=== PATIENT | male | born 1945 | race African-American/Black ===

== ENCOUNTER 2025-01-06 07:09 | Inpatient (IN) | payer BC ==
[2025-01-06] VITALS (54 sets, daily range): BP systolic 85–158; BP diastolic 38–79; PULSE 53–100; RESP 11–25; TEMP 97–97.9; O2SAT 73–100
[~2025-01-06] VITALS: Ht 175.3 cm; Wt 57.5 kg
[~2025-01-06 07:09] MED LIST: ALBU2SYP25 PO; ASPI81CH43 PO; ATOR40TA52 PO; CLOB0.055 TOP; CLOP75TA70 PO; DICL75TA3 PO; ERGO1CAP23 PO; GABA-1308 PO; MAGN400T40 PO; MULT-1199 PO; SACU1TAB PO
[2025-01-06] MEDS: VERAPAMIL 2.5MG/ML INJ 2ML VIAL IV ONE (08:46)
[2025-01-06] MEDS: HEPARIN SODIUM (PORCINE) 5000 UNITS/ML 1ML VIAL ONE (08:46)
[2025-01-06] MEDS: ANGIOMAX 250 MG VIAL IV ONE (08:46)
[2025-01-06] MEDS: fentaNYL CITRATE 100 MCG/2 ML VL ONE (08:46)
[2025-01-06] MEDS: MIDAZOLAM HCL 2MG/2ML 2ml VIAL (1mg/ml) ONE (08:47)
[2025-01-06] MEDS: HEPARIN IN NS 1000Units/500mL 1,500 ML ONE (08:47)
[2025-01-06] MEDS: LIDOCAINE 2%HCL (LOCAL ANESTH.) INJ 20ML MDV ONE (08:52)
[2025-01-06] MEDS: IODIXANOL 320MG/ML 100ML BTL IV ONE (09:04)
[2025-01-06] MEDS: ATROPINE SULF 1 MG/10ml SYR ONE (10:29)
[2025-01-06] MEDS: EPINEPHrine HCL 1 MG/10 ML SYRG ONE (10:30)
[2025-01-06] MEDS: NOREPINEPHRINE 8 MG/250ML KIT 250 ML IV ONE (10:31)
[2025-01-06] MEDS: PHENYLEPHRINE IV 250 ML IV ONE (10:31)
[2025-01-06] MEDS ORDERED: NITROGLYCERIN 0.4 MG SL TAB SL PRN (11:00)
[2025-01-06] MEDS ORDERED: MORPHINE SULFATE INJ 2 MG/ml SYRG IV PRN (11:00)
[2025-01-06 11:03] LABS: Basophils # (auto) 0.1 10 ^3/uL (0-0.2); Basophils % (auto) 0.9 % (0.0-2.0); Eosinophils # (auto) 0.3 10 ^3/uL (0-0.8); Eosinophils % (auto) 5.1 % (0.0-7.0); Hematocrit 27.2 % (41.0-53.0); Lymphocytes % (auto) 30.8 % (10.0-50.0); Mean Corpuscular Hemoglobin 29.3 pg (28.0-32.0); Mean Corpuscular Volume 88.6 fL (80.0-100.0); Monocytes # (auto) 0.5 10 ^3/uL (0-1.3); Neutrophils # (auto) 3.5 10 ^3/uL (1.6-8.6); Neutrophils % (auto) 55.2 % (37.0-80.0); Nucleated Red Blood Cells % 0.2 %; Platelet Count (auto) 334 10^3/uL (140-450); Red Blood Cells 3.07 10^6/uL (4.5-5.90); Red Cell Distribution Width 16.7 % (11.8-14.3); White Blood Cell 6.4 10^3/uL (4.4-10.8)
[2025-01-06] MEDS: NOREPINEPHRINE 8 MG/250ML KIT 250 ML IV SCH (11:05)
[2025-01-06] MEDS: IOHEXOL 300 MG/ML 100ML BOTTLE IJ ONE (11:16)
--- NOTE | 2025-01-06 11:24 | DVH ---
INDICATION: r/o post procedure bleed right groin TECHNIQUE: Multiple real-time sonographic images of the lower quadrant. COMPARISON: None FINDINGS: There is trace free fluid in the right lower quadrant. Please note that the right groin is not imaged. IMPRESSION: 1. Trace free fluid in the right lower quadrant. Please note that the right groin is not imaged. If there is clinical concern for hematoma or pseudoaneurysm, targeted ultrasound of the right groin is r ecommended.
[2025-01-06] MEDS: SODIUM CHLORIDE 0.9% 1,000 ML IV SCH (12:00)
--- NOTE | 2025-01-06 12:10 | DVH ---
Exam: CT CT AB PEL WITH IV CON ONLY History: R/O RETROPERITONEAL BLEED Comparison Study: None available at time of dictation. Contrast: Type of contrast: Omnipaque 300 Contrast injected: 100 mL Contrast wasted: 0 TECHNIQUE: CT angiography of the abdomen pelvis was performed using intravenous contrast, from the belen ng bases to the proximal femurs from axial images. Coronal and sagittal reformatted images are submi tted. Radiation Dose Information: CT Dose: CTDI volume is 5.7 mGy. Dose-length product is 343.3 mGy*cm FINDINGS: Lung Bases: Leftward shift of the heart and mediastinum. Emphysema of the lung bases. No focal pulmon ele consolidation. Liver: The liver is normal in size. No focal lesions. Normal hepatic vascular enhancement. Gallbladder and Biliary Tree: Gallbladder is unremarkable. No intrahepatic or extrahepatic biliary du ctal dilatation. Spleen: Unremarkable Pancreas: The pancreas is normal in appearance without focal lesions or abnormal enhancement. Adrenal Glands: Unremarkable Kidneys: Kidneys demonstrate normal symmetric enhancement without focal lesions, calculi or hydroneph rosis. Bilateral subcentimeter renal cysts. Urinary bladder: Unremarkable. Bowel: The stomach is grossly normal in appearance. Small bowel and colon are normal in caliber and d istribution. The appendix is not visualized; however, no secondary findings of acute appendicitis id entified. Intraperitoneal cavity: No pneumoperitoneum. No intraperitoneal free fluid. There is mixed, hyperattenuating and hypoattenuating fluid collection in the right retroperitoneum wh ich measures 8.1 cm AP by 6.4 cm transverse by 19.8 cm in maximum craniocaudal dimension. The hyperat tenuating areas are consistent with active contrast extravasation. This extends to the right groin wh ere there are postsurgical changes. There is a focus of gas in the right groin. Right external iliac artery is ill-defined with surrounding hyperattenuating fluid suspicious for the source of possible h emorrhage. Lymphadenopathy: No mesenteric, retroperitoneal or periportal lymphadenopathy. Abdominal Wall and Mesentery: Unremarkable. Vasculature: The visualized abdominal aorta is normal in size and caliber. Atherosclerotic calcifica tions in the abdominal aorta and common iliac arteries and branches. No evidence of abdominal aortic aneurysm or dissection. Pelvic Organs: Unremarkable Musculoskeletal: No aggressive focal bony lesions, acute fractures or dislocation. Left hip replaceme nt. L1 compression deformity of indeterminate age. Soft tissues: Unremarkable. IMPRESSION: 1. 19.8 cm right retroperitoneal hematoma with areas of active arterial hemorrhage. Source of hemorr sandra is possibly the right external iliac artery as described. All CT scans at this medical facility are performed using dose modulation techniques as appropriate t o a performed exam including the following: Automated exposure control was utilized; adjustment of th e MA and/or KV according to patient size; and use of iterative reconstruction technique.
--- NOTE | 2025-01-06 13:12 | DVHOP2 ---
Operative Report - 2 Report Details Date: 01/06/25 Preop Diagnosis: Peripheral vascular disease Postop Diagnosis: Peripheral vascular disease Surgeon: Dickson Holt MD Anesthesiologist: Conscious sedation Anesthesia: Mac, Local (Versed and fentanyl given throughout the procedure. Patient was monitored throughout.) Consent: The patient was informed of the risks and benefits of the procedure. These include but are not limited to complications of anesthesia, postoperative infection, incomplete relief of symptoms, recurrence of symptoms, damage to blood vessels, nerves and tendons, deep venous thrombosis, pulmonary embolism and possible need for repeat surgery in the future. Complications: Small perforation of distal iliac artery Estimated Blood Loss: No external blood loss Fluids: 1400 cc IV fluids given. Findings: Occlusion of proximal right common iliac artery. Indications for Surgery: Claudication. Name of Procedure Performed Peripheral angiographic evaluation. 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 A runoff was performed of the left lower extremity. We then placed a rim catheter into the left femoral and into the distal aorta and performed an angiographic evaluation of the proximal iliac. This was occluded proximally. We then gained access into the right femoral RV and placed a six Sammarinese sheath into the proximal right common femoral. Angiographic evaluation and runoff was then performed through this catheter. We took a quick cross catheter and attempted advancement into the right femoral artery retrograde it appeared to go into the seemed to be a false channel in the right femoral artery. We retracted the catheter in went into what appears to be the true channel of the distal external iliac. We attempted a retrograde recanalization approach. We then placed an MCV 1 catheter into the left femoral in attempted an antegrade approach as well. The patient developed hypotension. We instituted aggressive IV hydration and pressors. We occluded the right femoral artery as to prevent flow retrograde into a possible perforation. We noticed that the right lower quadrant was firm and tender. We stopped Angiomax and put pressure on the femoral artery and placed a FemoStop device. Dopamine was instituted. Patient was blood pressure remained stable. Patient was otherwise conscious and stable throughout. A CT scan was ordered. Impression unsuccessful recanalization of the right iliac artery. Perforation distal iliac/proximal femoral artery possibly through a exchanged catheter or wire. We will monitor and a vascular surgeon consultation obtained. Condition Guarded Disposition Still a Patient Date of Service: Jan 06, 2025 Billing Provider: DICKSON HOLT Sr., MD Cardiology Common Codes: 34213-[id number] INP/OBS CARE (High) Peripheral Procedures Codes: 83775-[id number] W/TRANS ANGPLASTY DICKSON HOLT Sr., MD Jan 06, 2025 13:12
--- NOTE | 2025-01-06 14:27 | DVHINCON2 ---
Date of service: Jan 06, 2025 Family History: Cancer MOTHER Allergies: Coded Allergies: NO KNOWN ALLERGIES (Unverified , 01/01/25) Home Meds Reported Medications Ergocalciferol (VITAMIN D 30438 UNIT) 50,000 [place], [address] UNIT PO QWEEKLY for SUPPLEMENT, CAP 01/01/25 Atorvastatin Calcium (ATORVASTATIN CALCIUM) 40 Mg Tab, 1 TAB PO DAILY for HIGH CHOLESTEROL, #30 TAB 5 Refills 01/01/25 Magnesium Oxide (MAGNESIUM OXIDE) 400 Mg Tab, 1 TAB PO BID for SUPPLEMENT, #60 TAB 5 Refills 01/01/25 Clopidogrel Bisulfate (CLOPIDOGREL) 75 Mg Tab, 1 TAB PO DAILY for S/P ILIAC STENT, #90 TAB 1 Refill 01/01/25 Gabapentin (Gabapentin) 100 Mg Cap, 100 MG PO TID for NEUROPATHY 01/01/25 Sacubitril-Valsartan (Entresto 24-26 mg) 1 Tab Tab, 1 TAB PO BID for HF, TAB 01/01/25 Multiple Vitamins W/ Minerals (Centrum Minis Men 50+) 1 Tab Tab, 1 TAB PO DAILY for SUPPLEMENT, TAB 01/01/25 Diclofenac Sodium (Diclofenac Sodium Dr) 75 Mg Tab, 75 MG PO QID for PAIN, TAB 01/01/25 Albuterol Sulfate (Ventolin) 2 Mg/5 Ml Sr, 2 MG PO Q6HP PRN for SHORTNESS OF BREATH, MG 11/09/16 Aspirin (Asa) 81 Mg Ch, 81 MG PO DAILY 11/09/16 Clobetasol Propionate (Clobetasol Propionate) 0.05 % Cre, 1 APPLIC TOP BID for SKIIN IRRITATION, #15 GRAMS 11/09/16 Current Medications Current Medications Medications (Trade) Dose Ordered Sig/Elizabeth Route PRN Reason Start Time Stop Time Status Last Admin Nitroglycerin (Ntrostat Sublingual) 0.4 mg Q5MINP PRN SL FOR CHEST PAIN 01/06/25 11:00 UNV Morphine Sulfate 2 mg Q30M PRN IV FOR CHEST PAIN 01/06/25 11:00 UNV Norepinephrine Bitartrate 250 ml @ 3.75 mls/hr Q24H IV 01/06/25 11:05 UNV Sodium Chloride 1,000 ml @ 100 mls/hr Q10H IV 01/06/25 12:00 UNV Vital Signs Vital Signs Date Time Temp Pulse Resp B/P (MAP) Pulse Ox O2 Delivery O2 Flow Rate FiO2 01/06/25 13:07 128/50 01/06/25 13:04 97.0 68 12 97.0 01/06/25 13:02 95 Labs/Diagnostic Data Labs Test 01/06/25 10:45 Range/Units White Blood Count 6.4 4.4-10.8 10^3/uL Red Blood Count 3.07 L 4.5-5.90 10^6/uL Hemoglobin 9.0 L 13.5-17.5 g/dL Hematocrit 27.2 L 41.0-53.0 % Mean Corpuscular Volume 88.6 80.0-100.0 fL Mean Corpuscular Hemoglobin 29.3 28.0-32.0 pg Mean Corpuscular Hemoglobin Concent 33.0 32.0-36.0 g/dL Red Cell Distribution Width 16.7 H 11.8-14.3 % Platelet Count 334 140-450 10^3/uL Mean Platelet Volume 6.6 L 6.9-10.8 fL Neutrophils (%) (Auto) 55.2 37.0-80.0 % Lymphocytes (%) (Auto) 30.8 10.0-50.0 % Monocytes (%) (Auto) 8.0 0.0-12.0 % Eosinophils (%) (Auto) 5.1 0.0-7.0 % Basophils (%) (Auto) 0.9 0.0-2.0 % Neutrophils # (Auto) 3.5 1.6-8.6 10 ^3/uL Lymphocytes # (Auto) 2.0 0.4-5.4 10 ^3/uL Monocytes # (Auto) 0.5 0-1.3 10 ^3/uL Eosinophils # (Auto) 0.3 0-0.8 10 ^3/uL Basophils # (Auto) 0.1 0-0.2 10 ^3/uL Nucleated Red Blood Cells 0.2 % Assessment PATIENT SEEN IN [employer] ADMINISTRATOR HAD AN PERCUTANEOUS ANGIOGRAM WITH IATROGENIC PERFORATION, NOW A SIGNIFICANT HEMATOMA IN RIGHT RETROPERITONEAL SPACE, RIGHT FEMORAL ARTERY PULSATILE, NO SWELLING, NOW ON MINIMAL PRESSURE SUPPORT WITH NORMAL bp, NEEDS PACKED CELLS, REPEAT H/H DETERMINATION, PLEASE CALL ME IF DECREASING OR IF HEMODYNAMICALLY UNSTABLE, Plan discussed with: Other KEV SAUNDERS MD Jan 06, 2025 14:27
[2025-01-06 16:27] LABS: INR 1.51 (0.9-1.15); Partial Thromboplastin Time 45.3 SEC (24.5-34.5); Prothrombin Time 15.4 sec (9.3-11.8)
[2025-01-06 17:47] LABS: Hematocrit 30.9 % (41.0-53.0); Hemoglobin 10.1 g/dL (13.5-17.5)
[2025-01-06 22:38] LABS: Hematocrit 27.2 % (41.0-53.0)
[2025-01-07] VITALS (104 sets, daily range): BP systolic 91–144; BP diastolic 26–100; PULSE 51–81; RESP 13–32; TEMP 97.7–98.3; O2SAT 78–100
[2025-01-07 02:16] LABS: Hematocrit 25.3 % (41.0-53.0); Hemoglobin 8.5 g/dL (13.5-17.5)
[2025-01-07 04:34] LABS: Alanine Aminotransferase 17 U/L (7-40); Alkaline Phosphatase 78 U/L (46-116); Calcium 8.9 mg/dL (8.7-10.4); Carbon Dioxide 23 mmol/L (20-31); Glucose 90 mg/dL (74-106); Potassium 4.2 mmol/L (3.5-5.1)
[2025-01-07 04:35] LABS: Anion Gap 6 (5-15); Aspartate Aminotransferase 18 U/L (13-40); BUN/Creatinine Ratio 10.6 (10.0-20.0); Bilirubin, Total 1.1 mg/dL (0.2-1.0); Blood Urea Nitrogen 13 mg/dL (9-23); Sodium 137 mmol/L (136-145); Total Protein 6.3 g/dL (5.7-8.2)
[2025-01-07 04:49] LABS: Basophils # (auto) 0 10 ^3/uL (0-0.2); Basophils % (auto) 0.3 % (0.0-2.0); Eosinophils # (auto) 0.2 10 ^3/uL (0-0.8); Eosinophils % (auto) 2.4 % (0.0-7.0); Hematocrit 25.4 % (41.0-53.0); Hemoglobin 8.5 g/dL (13.5-17.5); Lymphocytes # (auto) 1.1 10 ^3/uL (0.4-5.4); Lymphocytes % (auto) 14.5 % (10.0-50.0); Mean Corpuscular Hemoglobin 29.8 pg (28.0-32.0); Mean Corpuscular Hgb Conc. 33.5 g/dL (32.0-36.0); Mean Corpuscular Volume 88.9 fL (80.0-100.0); Monocytes # (auto) 0.7 10 ^3/uL (0-1.3); Neutrophils # (auto) 5.7 10 ^3/uL (1.6-8.6); Neutrophils % (auto) 73.8 % (37.0-80.0); Nucleated Red Blood Cells % 0.1 %; Platelet Count (auto) 244 10^3/uL (140-450); Red Blood Cells 2.86 10^6/uL (4.5-5.90); Red Cell Distribution Width 16.2 % (11.8-14.3); White Blood Cell 7.7 10^3/uL (4.4-10.8)
[2025-01-07 05:03] LABS: Albumin 3.1 g/dL (3.2-4.8); Chloride 108 mmol/L (98-107)
--- NOTE | 2025-01-07 06:08 | DVH ---
EXAM: XR Chest, 1 View CLINICAL INDICATION: RESP DISTRESS TECHNIQUE: Frontal view of the chest. COMPARISON: None FINDINGS: LUNGS AND PLEURAL SPACES: Left basilar atelectasis or pneumonia. Left pleural effusion. HEART: Cardiomegaly with mild congestion. MEDIASTINUM: Unremarkable. Normal mediastinal contour. BONES/JOINTS: Unremarkable. No acute fracture. OTHER FINDINGS: . . . . IMPRESSION: 1. Left basilar atelectasis or pneumonia. 2. Cardiomegaly with mild congestion. 3. Left pleural effusion.
[2025-01-07 10:49] LABS: Hematocrit 28.5 % (41.0-53.0); Hemoglobin 9.5 g/dL (13.5-17.5)
--- NOTE | 2025-01-07 11:48 | DVHPN2 ---
Progress Note Date Seen: Jan 07, 2025 Medical Necessity Reason Pt with a Central, PICC or Fol: No Objective vital signs Vital Sign Date Time Temp Pulse Resp B/P (MAP) Pulse Ox O2 Delivery O2 Flow Rate FiO2 01/07/25 10:19 98.0 63 17 124/58 98.0 01/07/25 06:16 97 01/07/25 06:00 Room Air* 0 21 21 Total Intake and Output 01/06/25 01/06/25 01/07/25 15:00 23:00 07:00 Intake Total 700 ml 1940 ml 700 ml Output Total 950 ml Balance 700 ml 990 ml 700 ml medications Current Medications Medications Dose Ordered Sig/Elizabeth Route Start Time Stop Time Status Last Admin Dose Admin Nitroglycerin 0.4 mg Q5MINP PRN SL 01/06/25 11:00 Morphine Sulfate 2 mg Q30M PRN IV 01/06/25 11:00 Norepinephrine Bitartrate 250 ml @ 3.75 mls/hr Q24H IV 01/06/25 11:05 Sodium Chloride 1,000 ml @ 100 mls/hr Q10H IV 01/06/25 12:00 01/07/25 06:00 100 MLS/HR laboratory and microbiology Laboratory Tests 01/07/25 10:39 01/07/25 03:22 Test 01/07/25 03:22 Range/Units Serum Glucose 90 74-106 mg/dL Problem List/Assessment/Plan Problem List/Assessment/Plan 01/07/25 surgical f/u, patient stable, catheter sites without swelling, distal perfusion stable, h/h Ok, he can be down graded , return to see me in 4 weeks imn the office for planning of a fem fem bypass. Plan discussed with: Patient KEV SAUNDERS MD Jan 07, 2025 11:48
[2025-01-07 15:17] LABS: Hematocrit 28.9 % (41.0-53.0); Hemoglobin 9.8 g/dL (13.5-17.5)
[2025-01-07 19:13] LABS: Hematocrit 28.7 % (41.0-53.0); Hemoglobin 9.7 g/dL (13.5-17.5)
--- NOTE | 2025-01-07 20:05 | DVHHP2 ---
Admitting Diagnosis: status post cardiac angiogram, perforated distal iliac artery History of Present Illness History Source: Patient Exam Limitations: No limitations HPI Mr. Fuad Diez is a 79 yo male with a history of COPD, current cigarette smoker, hypertension, heart failure , PVD, hyperlipidemia, neuropathy, cataracts, glaucoma who presented to the hospital on 01/06 for outpatient cardiac angiogram procedure with cardiology Dr. Holt. Patient was then admitted to ICU for 19.8 cm right retroperitoneal hematoma. Patient CT abdomen/pelvis resulted: 1. 19.8 cm right retroperitoneal hematoma with areas of active arterial hemorrhage. Source of hemorrhage is possibly the right external iliac artery as described. Patient lower quadrant ultrasound resulted: 1. Trace free fluid in the right lower quadrant. Please note that the right groin is not imaged. If there is clinical concern for hematoma or pseudoaneurysm, targeted ultrasound of the right groin is recommended. Patient was admitted to ICU by Cardiology for further evaluation. Home Meds Reported Medications Ergocalciferol (VITAMIN D 56133 UNIT) 50,[place], [address] UNIT PO QWEEKLY for SUPPLEMENT, CAP 01/01/25 Atorvastatin Calcium (ATORVASTATIN CALCIUM) 40 Mg Tab, 1 TAB PO DAILY for HIGH CHOLESTEROL, #30 TAB 5 Refills 01/01/25 Magnesium Oxide (MAGNESIUM OXIDE) 400 Mg Tab, 1 TAB PO BID for SUPPLEMENT, #60 TAB 5 Refills 01/01/25 Clopidogrel Bisulfate (CLOPIDOGREL) 75 Mg Tab, 1 TAB PO DAILY for S/P ILIAC STENT, #90 TAB 1 Refill 01/01/25 Gabapentin (Gabapentin) 100 Mg Cap, 100 MG PO TID for NEUROPATHY 01/01/25 Sacubitril-Valsartan (Entresto 24-26 mg) 1 Tab Tab, 1 TAB PO BID for HF, TAB 01/01/25 Multiple Vitamins W/ Minerals (Centrum Minis Men 50+) 1 Tab Tab, 1 TAB PO DAILY for SUPPLEMENT, TAB 01/01/25 Diclofenac Sodium (Diclofenac Sodium Dr) 75 Mg Tab, 75 MG PO QID for PAIN, TAB 01/01/25 Albuterol Sulfate (Ventolin) 2 Mg/5 Ml Sr, 2 MG PO Q6HP PRN for SHORTNESS OF BREATH, MG 11/09/16 Aspirin (Asa) 81 Mg Ch, 81 MG PO DAILY 11/09/16 Clobetasol Propionate (Clobetasol Propionate) 0.05 % Cre, 1 APPLIC TOP BID for SKIIN IRRITATION, #15 GRAMS 11/09/16 Past Medical History Cardiac: CHF, HTN, Hyperlipidemia Pulmonary: COPD Central Nervous System: No pertinent Hx GI: No pertinent Hx Hemotology/Oncology: No pertinent Hx Hepatobiliary: No pertinent Hx Psychiatric: No pertinent Hx Musculoskeletal: No pertinent Hx Rheumotologic: No pertinent Hx Infectious Disease: No peritnent Hx ENT: No pertinent Hx Renal/: No pertinent Hx Endocrine: No pertinent Hx Dermatology: No pertinent Hx Others Neuropathy, PVD, Cataracts, Glaucoma Patient Family History: Cancer MOTHER Smoker: <1 pack per day Alocohol: None Drugs: None Lives with: With family Domestic Violence: Neg Review of Systems Constitutional: No symptom reported Ears, Nose, & Throat: No symptom reported Eyes: No symptom reported Pulmonary/Respiratory: No symptom reported Cardiovascular: No symptom reported Gastrointestinal: No symptom reported Genitourinary: No symptom reported Musculoskeletal: No symptom reported Skin: No symptom reported Psychiatric: No symptom reported Endocrine: No symptom reported Hemotologic/Lymphatic: No symptom reported H&P Exam Vital Signs Vital Signs Date Time Temp Pulse Resp B/P (MAP) Pulse Ox O2 Delivery O2 Flow Rate FiO2 01/07/25 18:00 15 95 Room Air* 0 21 21 01/07/25 18:00 68 118/58 (78) 127/48 (74) 01/07/25 16:00 98.1 98.1 General Appeara: Well developed, Well nourished, Normal Appearance Head Exam: Normal inspection Neck Exam: Normal inspection, Non-tender, Normal alignment Eye Exam: bilateral eye Normal inspection, bilateral eye PERRL, bilateral eye EOMI Ear Exam: bilateral ear Auricle normal Nasal Exam: Normal inspection Mouth: Normal Inspection Pulmonary/Respiratory: Normal inspection, Normal breath sounds, Chest non- tender, Lungs clear Cardiovascular/Chest: Normal inspection, Regular rate, Normal Rhythm Peripheral Pulses: 2+ dorsalis pedis (R), 2+ dorsalis pedis (L), 2+ Radial (R), 2+ Radial (L) Abdominal Exam: Normal bowel sounds, Soft Rectal Exam: Deferred Back Exam: Normal inspection Male Genital Exam: Normal genitalia INDUSTRIAL ANALYST Exam: Normal hearing, Normal speech, PERRL Neuro/Mental St: Alert, Oriented Appearance: Appropriate appearance, Appropriate insight Eye contact/ Speech: Cooperative, Good eye contact, Normal speech Thoughts/Psych: Normal thought pattern Skin Exam: Normal inspection, Normal color, Warm/dry Labs/Xrays Labs Test 01/07/25 18:48 01/07/25 03:22 01/06/25 15:55 Range/Units Hemoglobin 9.7 L 13.5-17.5 g/dL Hematocrit 28.7 L 41.0-53.0 % White Blood Count 7.7 4.4-10.8 10^3/uL Red Blood Count 2.86 L 4.5-5.90 10^6/uL Mean Corpuscular Volume 88.9 80.0-100.0 fL Mean Corpuscular Hemoglobin 29.8 28.0-32.0 pg Mean Corpuscular Hemoglobin Concent 33.5 32.0-36.0 g/dL Red Cell Distribution Width 16.2 H 11.8-14.3 % Platelet Count 244 140-450 10^3/uL Mean Platelet Volume 7.2 6.9-10.8 fL Neutrophils (%) (Auto) 73.8 37.0-80.0 % Lymphocytes (%) (Auto) 14.5 10.0-50.0 % Monocytes (%) (Auto) 9.0 0.0-12.0 % Eosinophils (%) (Auto) 2.4 0.0-7.0 % Basophils (%) (Auto) 0.3 0.0-2.0 % Neutrophils # (Auto) 5.7 1.6-8.6 10 ^3/uL Lymphocytes # (Auto) 1.1 0.4-5.4 10 ^3/uL Monocytes # (Auto) 0.7 0-1.3 10 ^3/uL Eosinophils # (Auto) 0.2 0-0.8 10 ^3/uL Basophils # (Auto) 0 0-0.2 10 ^3/uL Nucleated Red Blood Cells 0.1 % Sodium Level 137 136-145 mmol/L Potassium Level 4.2 3.5-5.1 mmol/L Chloride Level 108 H 98-107 mmol/L Carbon Dioxide Level 23 20-31 mmol/L Anion Gap 6 5-15 Blood Urea Nitrogen 13 9-23 mg/dL Creatinine 1.23 0.700-1.30 mg/dL Glomerular Filtration Rate Calc 60 >90 mL/min BUN/Creatinine Ratio 10.6 10.0-20.0 Serum Glucose 90 74-106 mg/dL Calcium Level 8.9 8.7-10.4 mg/dL Total Bilirubin 1.1 H 0.2-1.0 mg/dL Aspartate Amino Transferase (AST) 18 13-40 U/L Alanine Aminotransferase (ALT) 17 7-40 U/L Alkaline Phosphatase 78 46-116 U/L Total Protein 6.3 5.7-8.2 g/dL Albumin 3.1 L 3.2-4.8 g/dL Prothrombin Time 15.4 H 9.3-11.8 sec Prothrombin Time INR 1.51 H 0.9-1.15 Activated Partial Thromboplast Time 45.3 H 24.5-34.5 SEC Microbiology Date/Time Source Procedure Growth Status 01/07/25 00:00 Nose MRSA Screen - Final Complete Assessment/Plan Problem List: (1) Status post cardiac catheterization (2) Retroperitoneal hematoma Plan This is a 79 yo male with a history of COPD, current cigarette smoker, hypertension, heart failure , PVD, hyperlipidemia, neuropathy, cataracts, glaucoma who presented to the hospital on 01/06 for outpatient cardiac angiogram procedure with cardiology Dr. Holt. Patient was then admitted to ICU for 19.8 cm right retroperitoneal hematoma. Patient CT abdomen/pelvis resulted: 1. 19.8 cm right retroperitoneal hematoma with areas of active arterial hemorrhage. Source of hemorrhage is possibly the right external iliac artery as described. Patient lower quadrant ultrasound resulted: 1. Trace free fluid in the right lower quadrant. Please note that the right groin is not imaged. If there is clinical concern for hematoma or pseudoaneurysm, targeted ultrasound of the right groin is recommended. Patient was admitted to ICU by Cardiology for further evaluation. General surgeon was also consulted by Cardiology for further evaluation. We were consulted to follow for medical management. 1. status post cardiac angiogram 2. perforated distal iliac artery 3. retroperitoneal hematoma Cardiology recommendation appreciated and continued General surgeon recommendation appreciated and continued IV fluids NS serial H&H every 4 hours GI ppx Protonix Analgesics as needed Monitor BMP, CBC Discussed all above with patient who verbalized agreement and understanding of care plan. All questions were answered. Discussed assessment and care plan with supervising MD. Patient is seen and evaluated in the ICU as well as discussed with the nurse and Dr. Garzon a contact center agent. Chart is reviewed and discussed with the nurse practitioner. I agree with nurse practitioner's evaluation, documentation, assessment and care plan as outlined. Plan discussed with: Patient, Other Code Visit Code Visit Total Time (mins): 45 BEATA AUGUSTE Jan 07, 2025 20:05 SARAH MCLEOD MD Jan 08, 2025 12:51
[2025-01-07] MEDS ORDERED: HYDROcodone-ACET 5/325MG TAB PO PRN (20:15)
[2025-01-07] MEDS ORDERED: ONDANSETRON HCL 4 MG/2 ML VIAL IV PRN (20:15)
[2025-01-07] MEDS: PANTOPRAZOLE 40 MG/10 ML VIAL INJ IV SCH (20:49)
[2025-01-07 21:42] LABS: Urine Bacteria None Seen /hpf (None Seen)
[2025-01-07 22:06] LABS: Urine Blood TRACE /uL (Negative); Urine Clarity Clear (Clear); Urine Color Yellow (Yellow); Urine Protein, UAD Negative (Negative); Urine Specific Gravity 1.023 (1.001-1.035); Urine Squamous Epithelial Cell FEW /hpf (<5); Urine Urobilinogen Normal (Negative); Urine WBC 1 /HPF (0-3); Urine pH 5.5 (5.0-9.0)
[2025-01-07 23:04] LABS: Hematocrit 26.7 % (41.0-53.0)
[2025-01-08] VITALS (75 sets, daily range): BP systolic 106–144; BP diastolic 37–63; PULSE 56–77; RESP 17–29; TEMP 98–98.4; O2SAT 92–98
[2025-01-08 02:43] LABS: Hematocrit 26.6 % (41.0-53.0); Hemoglobin 8.8 g/dL (13.5-17.5)
[2025-01-08 04:04] LABS: Basophils # (auto) 0 10 ^3/uL (0-0.2); Basophils % (auto) 0.4 % (0.0-2.0); Eosinophils # (auto) 0.2 10 ^3/uL (0-0.8); Eosinophils % (auto) 2.4 % (0.0-7.0); Hematocrit 26.6 % (41.0-53.0); Hemoglobin 9.3 g/dL (13.5-17.5); Lymphocytes # (auto) 1.3 10 ^3/uL (0.4-5.4); Lymphocytes % (auto) 14.6 % (10.0-50.0); Mean Corpuscular Hgb Conc. 34.9 g/dL (32.0-36.0); Mean Corpuscular Volume 88.9 fL (80.0-100.0); Monocytes % (auto) 10.7 % (0.0-12.0); Neutrophils # (auto) 6.6 10 ^3/uL (1.6-8.6); Neutrophils % (auto) 71.9 % (37.0-80.0); Nucleated Red Blood Cells % 0.1 %; Platelet Count (auto) 215 10^3/uL (140-450); Red Blood Cells 2.99 10^6/uL (4.5-5.90); Red Cell Distribution Width 16.4 % (11.8-14.3); White Blood Cell 9.2 10^3/uL (4.4-10.8)
[2025-01-08 04:20] LABS: Alanine Aminotransferase 14 U/L (7-40); Alkaline Phosphatase 72 U/L (46-116); Anion Gap 9 (5-15); Aspartate Aminotransferase 20 U/L (13-40); BUN/Creatinine Ratio 9.6 (10.0-20.0); Blood Urea Nitrogen 11 mg/dL (9-23); Glucose 79 mg/dL (74-106); Potassium 3.9 mmol/L (3.5-5.1); Sodium 138 mmol/L (136-145); Total Protein 6.1 g/dL (5.7-8.2)
[2025-01-08 04:33] LABS: Bilirubin, Total 1.5 mg/dL (0.2-1.0); Calcium 8.5 mg/dL (8.7-10.4); Carbon Dioxide 20 mmol/L (20-31); Chloride 109 mmol/L (98-107)
--- NOTE | 2025-01-08 06:04 | DVH ---
CHEST RADIOGRAPH Indication: RESP DISTRESS Technique: Single frontal view of the chest was obtained Comparison: XY CHEST PORTABLE on DOS: 01/07/25 FINDINGS: Lines and Tubes: None Lungs: Patchy left lung opacities. Pleura: Left pleural effusion. No pneumothorax. Cardiomediastinal contours: Leftward mediastinal shift. Obscuration of the heart. Bones: No acute osseous abnormality. IMPRESSION: 1. Patchy left lung opacities representing edema and/or pneumonia. Likely left pleural effusion super imposed. No significant interval change.
--- NOTE | 2025-01-08 09:28 | DVHPN2 ---
Consult Progress Note Date Seen: Jan 08, 2025 Subjective Patient reports: No new complaints, Feels better (Less abdominal pain. No significant pressure on palpation. Vital signs have been stable.) Review of Systems: HEENT:Normal, CVS:Normal, CVS:Abnormal ( Mild abdominal pain. No dizziness or lightheadedness.), RESPIRATORY:Normal, GI:Normal, :Normal, NEURO:Normal Objective vital signs Vital Sign Date Time Temp Pulse Resp B/P (MAP) Pulse Ox O2 Delivery O2 Flow Rate FiO2 01/08/25 08:00 73 01/08/25 08:00 20 96 Room Air* 0 21 21 01/08/25 06:45 115/45 (68) 119/42 (67) 01/08/25 04:00 98.1 98.1 Total Intake and Output 01/07/25 01/07/25 01/08/25 15:00 23:00 07:00 Intake Total 1390 ml 1670 ml 940 ml Output Total 550 ml 400 ml Balance 1390 ml 1120 ml 540 ml medications Current Medications Medications Dose Ordered Sig/Elizabeth Route Start Time Stop Time Status Last Admin Dose Admin Nitroglycerin 0.4 mg Q5MINP PRN SL 01/06/25 11:00 Morphine Sulfate 2 mg Q30M PRN IV 01/06/25 11:00 Norepinephrine Bitartrate 250 ml @ 3.75 mls/hr Q24H IV 01/06/25 11:05 Sodium Chloride 1,000 ml @ 100 mls/hr Q10H IV 01/06/25 12:00 01/08/25 02:50 100 MLS/HR Acetaminophen 650 mg Q6HPRN PRN PO 01/07/25 20:15 Acetaminophen/ Hydrocodone Bitart 1 tab Q6HPRN PRN PO 01/07/25 20:15 Ondansetron HCl 4 mg Q6HPRN PRN IV 01/07/25 20:15 Pantoprazole Sodium 40 mg DAILY IV 01/07/25 20:49 01/07/25 20:49 40 MG Examination: GENERAL:Normal, HEENT:Normal, NECK:Normal, LUNGS:Normal, CVS:Normal, ABDOMEN:Abnormal ( Mild abdominal pain right lower quadrant. Stable blood pressure. Stable hemoglobin and hematocrit.), MSK:Normal laboratory and microbiology Laboratory Tests 01/08/25 03:10 Test 01/08/25 03:10 Range/Units Serum Glucose 79 74-106 mg/dL Problem List/Assessment/Plan Problem List/Assessment/Plan Cardiomyopathy. Severe peripheral vascular disease. Claudication. Chronic occlusion of right iliac artery. Unsuccessful recannulization of iliac artery. Retroperitoneal hematoma resolved. Plan discussed with: Patient, Spouse ( We will follow up in 2-3 weeks. We will refer as outpatient to vascular surgery for fem-fem bypass.) Date of Service: Jan 08, 2025 Billing Provider: DICKSON BILL Sr., MD Cardiology Common Codes: 63128-[id number] INP/OBS CARE (High), 03510-[id number] HOSP CARE(High Peripheral Procedures Codes: [id number] W/TRANS ANGPLASTY ( Critical care evaluation and treatment for iliac artery perforation and retroperitoneal hematoma.) DICKSON BILL Sr., MD Jan 08, 2025 09:28
[2025-01-08 10:25] LABS: Hemoglobin 9.6 g/dL (13.5-17.5)
[2025-01-08 14:53] LABS: Hematocrit 29.4 % (41.0-53.0); Hemoglobin 9.8 g/dL (13.5-17.5)
[2025-01-08] MEDS: ACETAMINOPHEN 325 MG TAB PO PRN (18:20)
[2025-01-08 18:36] LABS: Hematocrit 28.2 % (41.0-53.0); Hemoglobin 9.6 g/dL (13.5-17.5)
--- NOTE | 2025-01-09 13:08 | DVHDS2 ---
Discharge Summary Date of Admission Jan 06, 2025 at 10:48 Date of Discharge: Jan 08, 2025 Labs/Diagnostic Data: Laboratory Results Test 01/08/25 18:01 01/08/25 03:10 01/07/25 21:00 01/06/25 15:55 Hemoglobin 9.6 g/dL (13.5-17.5) Hematocrit 28.2 % (41.0-53.0) White Blood Count 9.2 10^3/uL (4.4-10.8) Red Blood Count 2.99 10^6/uL (4.5-5.90) Mean Corpuscular Volume 88.9 fL (80.0-100.0) Mean Corpuscular Hemoglobin 31.0 pg (28.0-32.0) Mean Corpuscular Hemoglobin Concent 34.9 g/dL (32.0-36.0) Red Cell Distribution Width 16.4 % (11.8-14.3) Platelet Count 215 10^3/uL (140-450) Mean Platelet Volume 7.2 fL (6.9-10.8) Neutrophils (%) (Auto) 71.9 % (37.0-80.0) Lymphocytes (%) (Auto) 14.6 % (10.0-50.0) Monocytes (%) (Auto) 10.7 % (0.0-12.0) Eosinophils (%) (Auto) 2.4 % (0.0-7.0) Basophils (%) (Auto) 0.4 % (0.0-2.0) Neutrophils # (Auto) 6.6 10 ^3/uL (1.6-8.6) Lymphocytes # (Auto) 1.3 10 ^3/uL (0.4-5.4) Monocytes # (Auto) 1.0 10 ^3/uL (0-1.3) Eosinophils # (Auto) 0.2 10 ^3/uL (0-0.8) Basophils # (Auto) 0 10 ^3/uL (0-0.2) Nucleated Red Blood Cells 0.1 % Sodium Level 138 mmol/L (136-145) Potassium Level 3.9 mmol/L (3.5-5.1) Chloride Level 109 mmol/L (98-107) Carbon Dioxide Level 20 mmol/L (20-31) Anion Gap 9 (5-15) Blood Urea Nitrogen 11 mg/dL (9-23) Creatinine 1.14 mg/dL (0.700-1.30) Glomerular Filtration Rate Calc 66 mL/min (>90) BUN/Creatinine Ratio 9.6 (10.0-20.0) Serum Glucose 79 mg/dL (74-106) Calcium Level 8.5 mg/dL (8.7-10.4) Total Bilirubin 1.5 mg/dL (0.2-1.0) Aspartate Amino Transferase (AST) 20 U/L (13-40) Alanine Aminotransferase (ALT) 14 U/L (7-40) Alkaline Phosphatase 72 U/L (46-116) Total Protein 6.1 g/dL (5.7-8.2) Albumin 3.0 g/dL (3.2-4.8) Urine Color Yellow (Yellow) Urine Clarity Clear (Clear) Urine pH 5.5 (5.0-9.0) Urine Specific Anton 1.023 (1.001-1.035) Urine Protein Negative (Negative) Urine Ketones Negative (Negative) Urine Blood Trace /uL (Negative) Urine Nitrite Negative (Negative) Urine Bilirubin Negative (Negative) Urine Urobilinogen Normal mg/dL (Negative) Urine Leukocyte Esterase Negative /uL (Negative) Urine RBC 1 /hpf (0 - 3) Urine Microscopic WBC 1 /HPF (0-3) Urine Squamous Epithelial Cells Few /hpf (<5) Urine Bacteria None seen /hpf (None Seen) Urine Glucose 3+ mg/dL (Normal) Prothrombin Time 15.4 sec (9.3-11.8) Prothrombin Time INR 1.51 (0.9-1.15) Activated Partial Thromboplast Time 45.3 SEC (24.5-34.5) Other Laboratory Tests 01/08/25 18:01 01/08/25 03:10 Brief Hx & Hospital Course: Mr. Fuad Diez is a 79 yo male with a history of COPD, current cigarette smoker, hypertension, heart failure , PVD, hyperlipidemia, neuropathy, cataracts, glaucoma who presented to the hospital on 01/06 for outpatient cardiac angiogram procedure with cardiology Dr. Holt. Patient was then admitted to ICU for 19.8 cm right retroperitoneal hematoma. Patient CT abdomen/pelvis resulted: 1. 19.8 cm right retroperitoneal hematoma with areas of active arterial hemorrhage. Source of hemorrhage is possibly the right external iliac artery as described. Patient lower quadrant ultrasound resulted: 1. Trace free fluid in the right lower quadrant. Please note that the right groin is not imaged. If there is clinical concern for hematoma or pseudoaneurysm, targeted ultrasound of the right groin is recommended. Patient was admitted to ICU by Cardiology for further evaluation. He is admitted and evaluated further per request of Dr. Holt his casting machine operator given I am the on-call hospitalist. He is observed in the ICU and hemoglobin remained stable. Patient hematoma stable felt that does not need any further interventions per Cardiology and surgery recommendations. Patient is re- evaluated by casting machine operator and felt he was stable to be discharged home. I have talked to Dr. Holt in the hospital and he will be removing arterial line and femoral sheath from angiogram and subsequently patient is advised to walk which he has been doing without any discomfort. Therefore it is felt he could be safely discharged home with a follow up with the casting machine operator and vascular surgeon. I have talked with the patient along with the nurse at bedside in the ICU regarding discharge planning and follow up with Cardiology vascular surgery. I have also talked to [facility] on-call briefcase sewer to make further appointments as appropriate. Consults/Reason for consult Problem List/Assessment/Plan 01/07/25 surgical f/u, patient stable, catheter sites without swelling, distal perfusion stable, h/h Ok, he can be down graded , return to see me in 4 weeks imn the office for planning of a fem fem bypass. Plan discussed with: Patient KEV SAUNDERS MD Jan 07, 2025 11:48 Operations or Procedures Operative Report - 2 Report Details Date: 01/06/25 Preop Diagnosis: Peripheral vascular disease Postop Diagnosis: Peripheral vascular disease Surgeon: J Carlos Holt MD Anesthesiologist: Conscious sedation Anesthesia: Mac, Local (Versed and fentanyl given throughout the procedure. Patient was monitored throughout.) Consent: The patient was informed of the risks and benefits of the procedure. These include but are not limited to complications of anesthesia, postoperative infection, incomplete relief of symptoms, recurrence of symptoms, damage to blood vessels, nerves and tendons, deep venous thrombosis, pulmonary embolism and possible need for repeat surgery in the future. Complications: Small perforation of distal iliac artery Estimated Blood Loss: No external blood loss Fluids: 1400 cc IV fluids given. Findings: Occlusion of proximal right common iliac artery. Indications for Surgery: Claudication. Name of Procedure Performed Peripheral angiographic evaluation. 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 A runoff was performed of the left lower extremity. We then placed a rim catheter into the left femoral and into the distal aorta and performed an angiographic evaluation of the proximal iliac. This was occluded proximally. We then gained access into the right femoral RV and placed a six Salvadorean sheath into the proximal right common femoral. Angiographic evaluation and runoff was then performed through this catheter. We took a quick cross catheter and attempted advancement into the right femoral artery retrograde it appeared to go into the seemed to be a false channel in the right femoral artery. We retracted the catheter in went into what appears to be the true channel of the distal external iliac. We attempted a retrograde recanalization approach. We then placed an MCV 1 catheter into the left femoral in attempted an antegrade approach as well. The patient developed hypotension. We instituted aggressive IV hydration and pressors. We occluded the right femoral artery as to prevent flow retrograde into a possible perforation. We noticed that the right lower quadrant was firm and tender. We stopped Angiomax and put pressure on the femoral artery and placed a FemoStop device. Dopamine was instituted. Patient was blood pressure remained stable. Patient was otherwise conscious and stable throughout. A CT scan was ordered. Impression unsuccessful recanalization of the right iliac artery. Perforation distal iliac/proximal femoral artery possibly through a exchanged catheter or wire. We will monitor and a vascular surgeon consultation obtained. Condition Guarded Condition at Discharge: Stable Final Diagnosis/Problems List Peripheral vascular disease Discharge Disposition: Home Discharge Instruct/Medications Diet: Cardiac 2g Na,low cholest Activity: Light activity Discharge Statement: "Patient was advised to return to the ER or call 911 if any headaches, dizziness, shortness of breath, chest pain, abdominal pain, bleeding, fevers, or worsening of medical condition. Patient was counseled about treatment plan, medications, possible side effects, patientverbalized understanding. All questions were answered to the best of my ability. This discharge took greater then 30 minutes in planning, reviewing documentation, counseling the patient, and discussing with other team members." ASSESSMENT ASSESSMENT Assessment Peripheral vascular disease GANAPAVARAPU,SARAH MD Jan 09, 2025 13:08
== END 2025-01-08 22:41 | disposition home or self-care (01) | DRG 299 ==
LOC: CATH 07:09 → OVERFLOW 10:48 → ICU WEST 18:08
PROVIDERS: ADMIT Hospitalist; ATTEND Hospitalist
PROC: B41FYZZ Fluoroscopy of Right Lower Extremity Arteries using Other Contrast (ICD-10-PCS; principal; 2025-01-06)
PROC: 30233N1 Transfusion of Nonautologous Red Blood Cells into Peripheral Vein, Percutaneous Approach (ICD-10-PCS; 2025-01-06)
DX: I73.9 Peripheral vascular disease, unspecified (principal); K68.3 Retroperitoneal hematoma; I42.9 Cardiomyopathy, unspecified; I95.9 Hypotension, unspecified; E78.5 Hyperlipidemia, unspecified; G62.9 Polyneuropathy, unspecified; J44.9 Chronic obstructive pulmonary disease, unspecified; I50.9 Heart failure, unspecified; I11.0 Hypertensive heart disease with heart failure; H40.89 Other specified glaucoma; Z79.82 Long term (current) use of aspirin; Z79.899 Other long term (current) drug therapy
CPT/HCPCS: 36415; 71045; 74177; 75710; 76705; 76937; 80053; 81001; 85014; 85018; 85025; 85610; 85730; 86850; 86900; 86901; 86920; 87081; 99152; C1769; C1894; G0378; J2250; J2470; Q9967

== ENCOUNTER 2025-06-02 09:14 | Day surgery (SDC) | payer BC ==
[~2025-06-02] VITALS: Ht 172.7 cm; Wt 49.9 kg
[2025-06-02] VITALS (8 sets, daily range): BP systolic 109–138; BP diastolic 60–69; PULSE 62–68; RESP 11–21; TEMP 97.9; O2SAT 97–100
[~2025-06-02 09:14] MED LIST changes: +AMIO200T13 PO; -ASPI81CH43 PO; -CLOB0.055 TOP; +CLOP75TA28 PO; -CLOP75TA70 PO; -DICL75TA3 PO; +FINA5TAB4 PO; +TAMS0.4C39 PO
[2025-06-02] MEDS: IODIXANOL 320MG/ML 100ML BTL IV ONE (14:33)
[2025-06-02] MEDS: LIDOCAINE 2%HCL (LOCAL ANESTH.) INJ 20ML MDV ONE (14:33)
[2025-06-02] MEDS: VERAPAMIL 2.5MG/ML INJ 2ML VIAL IV ONE (14:38)
[2025-06-02] MEDS: HEPARIN SODIUM (PORCINE) 5000 UNITS/ML 1ML VIAL ONE (14:38)
[2025-06-02] MEDS: MIDAZOLAM HCL 2MG/2ML 2ml VIAL (1mg/ml) ONE (14:38)
[2025-06-02] MEDS: fentaNYL CITRATE 100 MCG/2 ML VL ONE (14:38)
[2025-06-02] MEDS: SODIUM CHL 0.9% 0 ML ONE (16:00)
[2025-06-02] MEDS: ANGIOMAX 250 MG VIAL IV ONE (16:00)
--- NOTE | 2025-06-02 17:55 | DVHOP2 ---
Operative Report - 2 Report Details Date: 06/02/25 Preop Diagnosis: CAD. Postop Diagnosis: Nonischemic cardiomyopathy. Surgeon: Dickson Holt MD Anesthesiologist: Conscious sedation Anesthesia: Mac, Local Consent: The patient was informed of the risks and benefits of the procedure. These include but are not limited to complications of anesthesia, postoperative infection, incomplete relief of symptoms, recurrence of symptoms, damage to blood vessels, nerves and tendons, deep venous thrombosis, pulmonary embolism and possible need for repeat surgery in the future. Complications: No complications Findings: Nonischemic cardiomyopathy Indications for Surgery: Cardiac clearance. Chest pain. Abnormal stress test. Name of Procedure Performed Left heart catheterization bilateral cine coronary angiography. Left ventriculography. Procedure Details Procedure Details: Prior local anesthesia with 2% lidocaine to the right wrist and full informed consent obtained the patient was prepped and draped in usual fashion followed by placement of a six Arabic sheath into the right radial artery through which six Arabic Elham catheters were used to cannulate both right and left coronary ostia and ventriculography with a pigtail catheter. No complications Hemodynamics: Aortic blood pressure was 110/50. End-diastolic pressure was 14. There was no gradient across the aortic valve on pullback Coronary anatomy: The heart is rotated to the left. It is notably vertical. The RCA is a large vessel it is normal in its proximal mid and distal segments with only mild plaquing. The PDA and posterolateral branches are normal. Left main is large and normal. Left anterior descending is a large vessel it has a proximal shelf-like lesion. Considered to be a proximally 15-20% stenosis. The remainder of the LAD is normal in its proximal mid and distal segments. A large intermediate branch arises it is normal in its proximal mid and distal segments. The circumflex is a medium caliber vessel is a slight stenosis proximally with the 20th 30% luminal irregularity. Ventriculography in the RICHTER projection shows EF of about 25%. Impression: Decreased left ventricular ejection fraction. Normal left ventricular end-diastolic pressure. Mild plaquing of coronary vasculature without significant disease. Recommendations: medical therapy is warranted continue risk factor modification. Condition Good Disposition Home Date of Service: Jun 02, 2025 Billing Provider: DICKSON HOLT Sr., MD Cardiology Common Codes: 32398-FWETGNA INP/OBS CARE (High) Cardiology Procedure Codes: 52843-VPRH HEART CATH W/INTRA INJ DICKSON HOLT Sr., MD Jun 02, 2025 17:55
== END 2025-06-02 19:27 | disposition home or self-care (01) ==
LOC: CATH 09:14
PROVIDERS: ATTEND Internal Medicine
DX: I25.10 Atherosclerotic heart disease of native coronary artery without angina pectoris (principal); I50.22 Chronic systolic (congestive) heart failure; I42.8 Other cardiomyopathies; R07.9 Chest pain, unspecified; R94.39 Abnormal result of other cardiovascular function study; Z79.899 Other long term (current) drug therapy; J44.9 Chronic obstructive pulmonary disease, unspecified; F17.200 Nicotine dependence, unspecified, uncomplicated; I73.9 Peripheral vascular disease, unspecified; I49.8 Other specified cardiac arrhythmias
CPT/HCPCS: 93458; C1769; C1887; C1894; J1644; J2250; J3010; J7030; Q9967; 99152